=== PATIENT | male | born 1935 ===

== ENCOUNTER 2016-09-25 14:25 | Emergency (ER) | payer MEDICARE ==
--- NOTE | 2016-09-25 15:00 | C.PDOC ---
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 PMHx includes HTN and seizure disorder. COMPLIANT W MEDS. ADAMT PRIOR ER VISITS FOR SAME. "I FEEL FINE, I KNOW WHERE I AM THEY ALWAYS BRING ME TO ER WHENEVER THIS HAPPENS". DENIES TRAUMA, PAIN. NO BLADDER/BOWEL INCONT. EXAM NEG Time Seen by Provider: 09/25/16 14:59 Chief Complaint (Nursing): Seizure History Per: Patient, EMS Recent Seizure Activity Began: Just Before Arrival Past Medical History Reviewed: Historical Data, Nursing Documentation, Vital Signs Vital Signs: Last Vital Signs Temp 98.6 F 09/25/16 16:10 Pulse 73 09/25/16 16:10 Resp 20 09/25/16 16:10 BP 131/71 09/25/16 16:10 Pulse Ox 97 09/25/16 16:10 - Medical History PMH: HTN, Seizures - [facility] Procedures INJECT/INFUSE NEC (11/10/13) TETANUS TOXOID ADMINIST (11/10/13) Family History: States: No Known Family Hx - Social History Hx Alcohol Use: No Hx Substance Use: No - Immunization History Hx Tetanus Toxoid Vaccination: No Hx Influenza Vaccination: No Hx Pneumococcal Vaccination: No Review Of Systems Except As Marked, All Systems Reviewed And Found Negative. Constitutional: Negative for: Fever Cardiovascular: Negative for: Chest Pain, Palpitations Respiratory: Negative for: Shortness of Breath Gastrointestinal: Negative for: Vomiting Neurological: Positive for: Seizures Physical Exam - Physical Exam Appears: Non-toxic, No Acute Distress, Other (NO POST ICTAL PERIDO) Skin: Warm, Dry, No Rash Eye(s): bilateral: Normal Inspection, PERRL, EOMI, Other (NO NYSTAGMUS) Nose: Normal Oral Mucosa: Moist Lips: Normal Appearing, No Laceration Neck: Normal ROM Cardiovascular: Rhythm Regular, No Murmur Respiratory: Normal Breath Sounds, No Accessory Muscle Use Extremity: Normal ROM Neurological/Psych: Oriented x3, Normal Speech ED Course And Treatment - Laboratory Results Result Diagrams: 09/25/16 15:19 09/25/16 15:19 O2 Sat by Pulse Oximetry: 96 Progress - Re-Evaluation Re-evaluation Note: 09/25/16 15:53 EXAM UNCH INITIAL. REQUESTING DC HOME - Data Reviewed Data Reviewed: Lab, Diagnostic imaging, EKG, Old records Disposition Counseled Patient/Family Regarding: Studies Performed, Diagnosis, Need For Followup - Disposition Referrals: YOUR,PMD [Other] Disposition: HOME/ ROUTINE Disposition Time: 15:54 Condition: IMPROVED Instructions: Recurrent Seizures in Adults (ED) Print Language: YAKUT - Clinical Impression Clinical Impression: Breakthrough seizure - Scribe Statement The provider has reviewed the documentation as recorded by the Scribe (TAMERA CAMPOVERDE) All medical record entries made by the Scribe were at my direction and personally dictated by me. I have reviewed the chart and agree that the record accurately reflects my personal performance of the history, physical exam, medical decision making, and the department course for this patient. I have also personally directed, reviewed, and agree with the discharge instructions and disposition.
[2016-09-25 15:25] LABS: HEMATOCRIT 38.2 % (35.0-51.0); MEAN CELL VOLUME 97.9 fL (80.0-94.0); MEAN CORPUSCULAR HEMOGLOBIN 32.3 pg (27.0-31.0); RED CELL DISTRIBUTION WIDTH 12.5 % (11.5-14.5); WHITE BLOOD COUNT 6.2 K/uL (4.8-10.8)
[2016-09-25 15:35] LABS: CHLORIDE 105 mmol/L (98-107); SODIUM 140 mmol/L (132-148)
[2016-09-25 15:36] LABS: POTASSIUM 3.4 mmol/L (3.6-5.2)
[2016-09-25 15:38] LABS: CARBON DIOXIDE 24 mmol/L (22-30); GFR AFRICAN-AMERICAN > 60
[2016-09-25 15:39] LABS: BLOOD UREA NITROGEN 13 mg/dL (9-20); CALCIUM 8.6 mg/dl (8.6-10.4); GLUCOSE,RANDOM 142 mg/dL (75-110)
[2016-09-25 16:11] VITALS: BP 131/71; PULSE 73; RESP 20; TEMP 98.6
[2016-09-25 16:23] VITALS: O2SAT 96
== END 2016-09-25 16:25 | disposition home or self-care (01) ==
LOC: C.ER 14:25
DX: G40.909 Epilepsy, unspecified, not intractable, without status epilepticus (principal)

== ENCOUNTER 2016-11-26 14:12 | Emergency (ER) | payer MEDICARE ==
[2016-11-26 14:19] VITALS: O2SAT 98
[2016-11-26 14:59] LABS: BASO % 0.5 % (0.0-2.0); EOS # 0.1 K/uL (0.0-0.7); EOS % 2.7 % (0.0-4.0); LYMPH # 1.4 K/uL (1.0-4.3); LYMPH % 29.8 % (20.0-40.0); MEAN CELL VOLUME 97.9 fL (80.0-94.0); MEAN CORPUSCULAR HEMOGLOBIN 32.8 pg (27.0-31.0); MEAN CORPUSCULAR HGB CONC 33.5 g/dL (33.0-37.0); MEAN PLATELET VOLUME 8.7 fL (7.2-11.7); MONO # 0.7 K/uL (0.0-0.8); MONO % 15.4 % (0.0-10.0); RED CELL DISTRIBUTION WIDTH 12.9 % (11.5-14.5); WHITE BLOOD COUNT 4.7 K/uL (4.8-10.8)
[2016-11-26 15:10] LABS: CHLORIDE 102 mmol/L (98-107); POTASSIUM 3.5 mmol/L (3.6-5.2); SODIUM 142 mmol/L (132-148)
[2016-11-26 15:12] LABS: ALB/GLOB RATIO 1.4 (1.0-2.1); ALKALINE PHOSPHATASE 70 U/L (38-126); ALT/SGPT 27 U/L (21-72); AST/SGOT 21 U/L (17-59); BILIRUBIN,TOTAL 1.1 mg/dL (0.2-1.3); BLOOD UREA NITROGEN 18 mg/dL (9-20); CARBON DIOXIDE 27 mmol/L (22-30); GFR AFRICAN-AMERICAN > 60; TOTAL PROTEIN 7.1 g/dL (6.3-8.3)
[2016-11-26 15:13] LABS: ALCOHOL SERUM < 10 mg/dl (0-10); CALCIUM 9.2 mg/dl (8.6-10.4); GLUCOSE,RANDOM 81 mg/dL (75-110)
[2016-11-26 15:16] LABS: VALPROIC ACID < 10.0 ug/mL (50.0-100.0)
[2016-11-26 15:26] LABS: CARBAMAZEPINE < 3.0 ug/mL (4.0-12.0)
--- NOTE | 2016-11-26 15:31 | C.PDOC ---
History Of Present Illness 81 year old male was brought to the ED by EMS after having a seizure in public just prior to arrival. Patient is a homeless with many prior evaluations in hospital for seizures in public. He denies trauma, fever, weakness, or numbness. Upon arrival to ED patient was back to his baseline. Time Seen by Provider: 11/26/16 14:26 Chief Complaint (Nursing): Seizure History Per: EMS History/Exam Limitations: no limitations Recent Seizure Activity Began: Just Before Arrival Number Of Seizures: One Length Of Seizures (Duration): Unknown Recent travel outside of the [place]: No Additional History Per: Prior Records Past Medical History Reviewed: Historical Data, Nursing Documentation, Vital Signs Vital Signs: Last Vital Signs Temp 98.8 F 11/26/16 15:43 Pulse 92 H 11/26/16 15:43 Resp 24 11/26/16 15:43 BP 149/83 11/26/16 15:43 Pulse Ox 98 11/26/16 16:11 - Medical History PMH: HTN, Seizures - [facility] Procedures INJECT/INFUSE NEC (11/10/13) TETANUS TOXOID ADMINIST (11/10/13) Family History: States: Unknown Family Hx - Social History Hx Alcohol Use: No Hx Substance Use: No - Immunization History Hx Tetanus Toxoid Vaccination: No Hx Influenza Vaccination: No Hx Pneumococcal Vaccination: No Review Of Systems Constitutional: Negative for: Fever, Chills Cardiovascular: Negative for: Chest Pain Respiratory: Negative for: Shortness of Breath Gastrointestinal: Negative for: Nausea, Vomiting, Abdominal Pain, Diarrhea Neurological: Positive for: Seizures. Negative for: Weakness, Numbness Physical Exam - Physical Exam Appears: Non-toxic, No Acute Distress, Other (Elderly male. Patietn returned to baseline on arrival. ) Skin: Warm, Dry Head: Atraumatic Eye(s): bilateral: Normal Inspection Oral Mucosa: Moist Neck: Supple Chest: Symmetrical, No Deformity Cardiovascular: Rhythm Regular Respiratory: Normal Breath Sounds, No Rales, No Rhonchi, No Wheezing Gastrointestinal/Abdominal: Soft, No Tenderness, No Distention, No Guarding, No Rebound Extremity: Normal ROM, No Tenderness, No Calf Tenderness, Capillary Refill ( good cpaillary refill, less than two seconds ), No Deformity, No Swelling Neurological/Psych: Oriented x3, Normal Speech, Normal Cognition, Normal Motor, Normal Sensation ED Course And Treatment - Laboratory Results Result Diagrams: 11/26/16 14:43 11/26/16 14:43 Lab Interpretation: Abnormal (all detectable seizure meds neg levels) ECG: Interpreted By Me ECG Rhythm: Sinus Rhythm ECG Interpretation: Normal Rate From EC O2 Sat by Pulse Oximetry: 98 (room air ) Pulse Ox Interpretation: Normal - Radiology CXR: Interpreted by Me CXR Interpretation: Yes: No Acute Disease Progress Note: EKG, UA, CXR, and blood work were ordered. Reevaluation Time: 15:30 Reassessment Condition: Unchanged (remains calm, comfortable, conversant) Medical Decision Making Medical Decision Making: typical seizure ? homeless takes 5 meds daily but unclear which, ? KEPPRA without a level? today's presentation very similar to many prior for same typical seizure, so head CT not repeated. pt declines new/more seizure meds and will continue same regimen and f/u as opt. Disposition Doctor Will See Patient In The: Office Counseled Patient/Family Regarding: Studies Performed, Diagnosis - Disposition Referrals: Moshe Fairbanks MD [Staff Provider] - Disposition: HOME/ ROUTINE Disposition Time: 15:31 Condition: GOOD Additional Instructions: sigue demetria medicamantos para la diabetes y los convulsiones typicos Sigue en nuest[facility] (gratis) o' con el Neurologo Dr. Fairbanks Instructions: Epilepsy (ED) Forms: [facility] (Faroese) Print Language: MALTESE - Clinical Impression Clinical Impression: Seizure - Scribe Statement The provider has reviewed the documentation as recorded by the Scribe Gladys Curiel All medical record entries made by the Scribe were at my direction and personally dictated by me. I have reviewed the chart and agree that the record accurately reflects my personal performance of the history, physical exam, medical decision making, and the department course for this patient. I have also personally directed, reviewed, and agree with the discharge instructions and disposition.
[2016-11-26 15:44] VITALS: BP 149/83; PULSE 92; RESP 24; TEMP 98.8
--- NOTE | 2016-11-26 17:19 | RAD ---
PROCEDURE: CHEST RADIOGRAPH, 1 VIEW HISTORY: Seizure COMPARISON: Portable chest 10/29/2015 FINDINGS: LUNGS: Clear. PLEURA: No pneumothorax or pleural fluid seen. CARDIOVASCULAR: Stable prominent cardiac silhouette. No pulmonary vascular derangement identified. OSSEOUS STRUCTURES: No significant abnormalities. VISUALIZED UPPER ABDOMEN: Normal. OTHER FINDINGS: None. IMPRESSION: Stable mild cardiomegaly. No acute infiltrate or pleural effusion identified.
--- NOTE | 2016-12-09 20:33 | CARD ---
APPROVED REPORT EKG Measurement Heart [id number] ID [id number] <Conclusion> Normal sinus rhythm baseline artifact Normal ECG
== END 2016-11-26 16:15 | disposition home or self-care (01) ==
LOC: C.ER 14:12
DX: G40.909 Epilepsy, unspecified, not intractable, without status epilepticus (principal)
CPT/HCPCS: 71010; 80053; 80156; 80164; 80185; 82550; 82948; 85025; 99285; G0480

== ENCOUNTER 2016-12-05 07:31 | Emergency (ER) | payer MEDICARE ==
[2016-12-05 07:45] VITALS: BP 173/81; PULSE 62; RESP 20; TEMP 98.2; O2SAT 99
--- NOTE | 2016-12-05 08:30 | C.PDOC ---
History Of Present Illness Pt c/o decreased vision, worse in his right eye. Denies pain. 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 Limitations: language barrier Onset/Duration Of Symptoms: Days (years), Worse Since (a few months) Current Symptoms Are (Timing): Still Present Injury To Eye?: No Severity: Moderate Wears Contact Lens?: No Associated Symptoms: Decreased Vision Additional History Per: Prior Records Past Medical History Reviewed: Historical Data, Nursing Documentation, Vital Signs Vital Signs: Last Vital Signs Temp 98.2 F 12/05/16 07:39 Pulse 62 12/05/16 07:39 Resp 20 12/05/16 07:39 BP 173/81 H 12/05/16 07:39 Pulse Ox 99 12/05/16 07:39 - Medical History PMH: HTN, Seizures - [facility] Procedures INJECT/INFUSE NEC (11/10/13) TETANUS TOXOID ADMINIST (11/10/13) Family History: States: Unknown Family Hx - Social History Hx Alcohol Use: No Hx Substance Use: No - Immunization History Hx Tetanus Toxoid Vaccination: No Hx Influenza Vaccination: No Hx Pneumococcal Vaccination: No Review Of Systems Except As Marked, All Systems Reviewed And Found Negative. Constitutional: Negative for: Fever Eyes: Positive for: Vision Change. Negative for: Pain, Conjunctivae Inflammation, Eyelid Inflammation, Redness Cardiovascular: Negative for: Chest Pain Respiratory: Negative for: Shortness of Breath Gastrointestinal: Negative for: Vomiting, Abdominal Pain Musculoskeletal: Negative for: Neck Pain Skin: Negative for: Rash Neurological: Negative for: Weakness, Numbness, Seizures, Altered Mental Status , Headache Physical Exam - Physical Exam Appears: Non-toxic, No Acute Distress Skin: Normal Color, Warm, Dry Head: Atraumatic, Normacephalic Eye(s): bilateral: PERRL, EOMI, Other (cataracts seen) Neck: Normal ROM, Supple Cardiovascular: Rhythm Regular Respiratory: Normal Breath Sounds, No Accessory Muscle Use Gastrointestinal/Abdominal: Soft, No Tenderness Extremity: Normal ROM Neurological/Psych: Oriented x3, Normal Motor, Normal Sensation Gait: Steady ED Course And Treatment O2 Sat by Pulse Oximetry: 99 Pulse Ox Interpretation: Normal Disposition Counseled Patient/Family Regarding: Diagnosis, Need For Followup - Disposition Referrals: Last Sawyer MD [Staff Provider] - Disposition: HOME/ ROUTINE Disposition Time: 08:32 Condition: STABLE Additional Instructions: Follow up with an Tour Manager this week for further evaluation and treatment. Return to the ER if you develop pain, redness, worsening of symptoms or if you have any other concerns. Instructions: Cataracts (ED) Forms: [facility] ([place]orese) Print Language: DJIBOUTIAN - Clinical Impression Clinical Impression: Decreased vision in both eyes, Cataracts, bilateral
== END 2016-12-05 08:40 | disposition home or self-care (01) ==
LOC: C.ER 07:31
DX: H26.9 Unspecified cataract (principal); H54.3 Unqualified visual loss, both eyes